=== PATIENT | female | born 1945 | race Caucasian/White ===

== ENCOUNTER 2023-04-20 08:15 | Outpatient (RCR) | payer MEDICARE, SELFPAY ==
--- NOTE | 2023-02-02 11:08 | URNOTE ---
Request received for authorization for Docetaxel (J9171), Cyclophosphamide (J9070), Palonosetron (J2469), Pegfilgrastim (J2506). Prior authorization is approved per [facility] website: Docetaxel/Cyclophosphamide and Palonosetron Auth#[id number], date range:02/08/23 to 02/09/24; and Pegfilgrastim Auth [id number] date range: 02/08/23 to 04/17/23.
[2023-02-02 14:11] LABS: Basophils Absolute Auto 0.04 K/uL (0.00-0.30); Basophils Percent Auto 0.5 % (0.0-3.0); Eosinophils Absolute Auto 0.21 K/uL (0.00-0.50); Eosinophils Percent Auto 2.7 % (0.0-7.0); Hematocrit 40.6 % (33.0-51.0); Hemoglobin* 13.1 gm/dL (12.0-16.0); Immature Granulocytes Abs Auto 0.01 K/uL (0.00-0.30); Immature Granulocytes Pct Auto 0.1 %; Lymphocytes Absolute Auto 2.74 K/uL (0.90-2.90); Lymphocytes Percent Auto 34.7 % (20-44); Mean Corpuscular HGB Conc 32 gm/dL (32-36); Mean Corpuscular Hemoglobin 31 pg (26-34); Mean Corpuscular Volume 96 fL (80-100); Monocytes Percent Auto 6.8 % (0.0-11.0); Neutrophils Absolute Auto 4.36 K/uL (1.7-7.0); Neutrophils Percent Auto 55.2 % (42.0-72.0); Platelet Count* 236 K/uL (140-440); RDW Coefficient of Variation % 12.4 % (11.5-15.5); Red Blood Count 4.22 m/uL (4.00-5.20)
[2023-02-02 14:19] LABS: Slide Review Reflex No
[2023-02-02 14:34] LABS: Albumin* 4.2 g/dL (3.3-5.0); Chloride* 105 mmol/L (96-114)
[2023-02-02 14:35] LABS: Potassium* 3.9 mmol/L (3.6-5.1); Sodium* 139 mmol/L (135-149)
[2023-02-02 14:37] LABS: Anion Gap 10 mEq/L (7-15); Aspartate Amino Transferase* 37 U/L (12-35); Bilirubin Total* 0.8 mg/dL (0.1-1.5); Carbon Dioxide* 24 mmol/L (20-32); Creatinine* 0.6 mg/dL (0.5-1.5); Est. Creatinine Clearance* 41.33; Estimated Glomerular Filt Rate 93 ml/min; Total Protein* 7.2 g/dL (6.0-8.3)
[2023-02-02 14:38] LABS: Alanine Aminotransferase* 22 U/L (4-35); Alkaline Phosphatase* 73 U/L (40-150); Blood Urea Nitrogen* 20 mg/dL (7-30); Calcium* 8.8 mg/dL (8.4-10.6); Glucose* 135 mg/dL (60-115)
[2023-02-08 08:40] VITALS: BP 131/72; PULSE 78; RESP 16; TEMP 36; O2SAT 95
[2023-02-08] MEDS: 0.9 % SODIUM CHLORIDE 250 ml IV (09:30)
[2023-02-08] MEDS: SODIUM CHLORIDE 0.9 % (FLUSH) 10 ML SYRINGE IVF ×2 (09:30→12:18)
[2023-02-08] MEDS: dexAMETHasone 20 MG in 0.9 % SODIUM CHLORIDE 100 ml 100 ML 420 MG IVPB (09:40)
[2023-02-08] MEDS: PALONOSETRON 0.25 MG/5 ML inj IV (09:40)
[2023-02-08] MEDS: HEPARIN 500 UNIT/5 ML SYRINGE IVF (12:17)
[2023-03-02 08:11] LABS: Basophils Absolute Auto 0.07 K/uL (0.00-0.30); Basophils Percent Auto 0.8 % (0.0-3.0); Eosinophils Absolute Auto 0.04 K/uL (0.00-0.50); Eosinophils Percent Auto 0.5 % (0.0-7.0); Hematocrit 36.9 % (33.0-51.0); Hemoglobin* 11.8 gm/dL (12.0-16.0); Immature Granulocytes Abs Auto 0.02 K/uL (0.00-0.30); Immature Granulocytes Pct Auto 0.2 %; Lymphocytes Percent Auto 19.2 % (20-44); Mean Corpuscular HGB Conc 32 gm/dL (32-36); Mean Corpuscular Hemoglobin 31 pg (26-34); Mean Corpuscular Volume 97 fL (80-100); Neutrophils Absolute Auto 6.13 K/uL (1.7-7.0); Neutrophils Percent Auto 69.3 % (42.0-72.0); Platelet Count* 348 K/uL (140-440); RDW Coefficient of Variation % 12.9 % (11.5-15.5); Red Blood Count 3.81 m/uL (4.00-5.20); White Blood Count* 8.84 K/uL (4.50-11.00)
[2023-03-02 08:19] LABS: Slide Review Reflex No
[2023-03-02 08:30] LABS: Chloride* 106 mmol/L (96-114); Sodium* 133 mmol/L (135-149)
[2023-03-02 08:31] LABS: Potassium* 4.5 mmol/L (3.6-5.1)
[2023-03-02 08:33] LABS: Alanine Aminotransferase* 19 U/L (4-35); Alkaline Phosphatase* 84 U/L (40-150); Anion Gap 1 mEq/L (7-15); Aspartate Amino Transferase* 20 U/L (12-35); Bilirubin Total* 0.7 mg/dL (0.1-1.5); Blood Urea Nitrogen* 18 mg/dL (7-30); Calcium* 9.3 mg/dL (8.4-10.6); Carbon Dioxide* 26 mmol/L (20-32); Creatinine* 0.7 mg/dL (0.5-1.5); Est. Creatinine Clearance* 43.07; Estimated Glomerular Filt Rate 90 ml/min; Glucose* 108 mg/dL (60-115); Total Protein* 6.8 g/dL (6.0-8.3)
[2023-03-02] MEDS: HEPARIN 500 UNIT/5 ML SYRINGE IVF (09:24)
[2023-03-02] MEDS: SODIUM CHLORIDE 0.9 % (FLUSH) 10 ML SYRINGE IVF (09:24)
[2023-03-02] MEDS: 0.9 % SODIUM CHLORIDE 250 ml IV (09:24)
[2023-03-02] MEDS: PALONOSETRON 0.25 MG/5 ML inj IV (09:24)
[2023-03-02] MEDS: dexAMETHasone 20 MG in 0.9 % SODIUM CHLORIDE 100 ml 100 ML 408 MG IVPB (09:24)
--- NOTE | 2023-03-02 11:38 | ONC.NURNOTE ---
Ok to treat with NA [address] Butterfield
[2023-03-24 08:33] LABS: Basophils Absolute Auto 0.03 K/uL (0.00-0.30); Basophils Percent Auto 0.5 % (0.0-3.0); Eosinophils Absolute Auto 0.05 K/uL (0.00-0.50); Eosinophils Percent Auto 0.8 % (0.0-7.0); Hematocrit 36.4 % (33.0-51.0); Hemoglobin* 11.5 gm/dL (12.0-16.0); Immature Granulocytes Abs Auto 0.01 K/uL (0.00-0.30); Immature Granulocytes Pct Auto 0.2 %; Lymphocytes Absolute Auto 1.47 K/uL (0.90-2.90); Lymphocytes Percent Auto 22.8 % (20-44); Mean Corpuscular HGB Conc 32 gm/dL (32-36); Mean Corpuscular Hemoglobin 31 pg (26-34); Mean Corpuscular Volume 97 fL (80-100); Monocytes Percent Auto 11.8 % (0.0-11.0); Neutrophils Absolute Auto 4.14 K/uL (1.7-7.0); Neutrophils Percent Auto 63.9 % (42.0-72.0); Platelet Count* 258 K/uL (140-440); RDW Coefficient of Variation % 13.4 % (11.5-15.5); Red Blood Count 3.76 m/uL (4.00-5.20); White Blood Count* 6.46 K/uL (4.50-11.00)
[2023-03-24 08:39] LABS: Slide Review Reflex No
[2023-03-24 08:55] LABS: Chloride* 106 mmol/L (96-114)
[2023-03-24 08:56] LABS: Potassium* 4.2 mmol/L (3.6-5.1); Sodium* 137 mmol/L (135-149)
[2023-03-24 08:58] LABS: Anion Gap 5 mEq/L (7-15); Aspartate Amino Transferase* 19 U/L (12-35); Bilirubin Total* 0.7 mg/dL (0.1-1.5); Blood Urea Nitrogen* 18 mg/dL (7-30); Carbon Dioxide* 26 mmol/L (20-32); Creatinine* 0.7 mg/dL (0.5-1.5); Est. Creatinine Clearance* 43.07; Estimated Glomerular Filt Rate 90 ml/min; Total Protein* 6.6 g/dL (6.0-8.3)
[2023-03-24 08:59] LABS: Alanine Aminotransferase* 22 U/L (4-35); Alkaline Phosphatase* 76 U/L (40-150); Calcium* 8.8 mg/dL (8.4-10.6); Glucose* 102 mg/dL (60-115)
[2023-03-24] MEDS: dexAMETHasone 20 MG in 0.9 % SODIUM CHLORIDE 100 ml 100 ML 408 MG IVPB (10:20)
[2023-03-24] MEDS: HEPARIN 500 UNIT/5 ML SYRINGE IVF (10:20)
[2023-03-24] MEDS: PALONOSETRON 0.25 MG/5 ML inj IV (10:20)
[2023-03-24] MEDS: 0.9 % SODIUM CHLORIDE 250 ml IV (10:21)
[2023-03-24] MEDS: SODIUM CHLORIDE 0.9 % (FLUSH) 10 ML SYRINGE IVF (10:21)
--- NOTE | 2023-04-19 06:57 | URNOTE ---
Request received for authorization for Pegfilgrastim (J2506). Pegfilgrastim approved- Auth: [id number], date range: 04/20/2023 to 04/17/2024. Confirmed during call Prior authorization is approved per Rep Erika Blake [facility]: Docetaxel/Cyclophosphamide and Palonosetron Auth#[id number], date range:02/08/23 to 02/09/24.
[2023-04-20 08:41] LABS: Basophils Absolute Auto 0.06 K/uL (0.00-0.30); Basophils Percent Auto 0.9 % (0.0-3.0); Eosinophils Absolute Auto 0.23 K/uL (0.00-0.50); Eosinophils Percent Auto 3.4 % (0.0-7.0); Hematocrit 35.9 % (33.0-51.0); Hemoglobin* 11.2 gm/dL (12.0-16.0); Immature Granulocytes Abs Auto 0.01 K/uL (0.00-0.30); Immature Granulocytes Pct Auto 0.1 %; Lymphocytes Percent Auto 17.2 % (20-44); Mean Corpuscular HGB Conc 31 gm/dL (32-36); Mean Corpuscular Hemoglobin 31 pg (26-34); Mean Corpuscular Volume 98 fL (80-100); Monocytes Percent Auto 13.8 % (0.0-11.0); Neutrophils Absolute Auto 4.36 K/uL (1.7-7.0); Neutrophils Percent Auto 64.6 % (42.0-72.0); Platelet Count* 246 K/uL (140-440); RDW Coefficient of Variation % 14.2 % (11.5-15.5); Red Blood Count 3.67 m/uL (4.00-5.20); White Blood Count* 6.75 K/uL (4.50-11.00)
[2023-04-20 08:48] LABS: Slide Review Reflex No
[2023-04-20 08:59] LABS: Albumin* 3.9 g/dL (3.3-5.0); Chloride* 105 mmol/L (96-114)
[2023-04-20 09:00] LABS: Potassium* 4.1 mmol/L (3.6-5.1); Sodium* 138 mmol/L (135-149)
[2023-04-20 09:02] LABS: Alkaline Phosphatase* 83 U/L (40-150); Anion Gap 7 mEq/L (7-15); Aspartate Amino Transferase* 20 U/L (12-35); Bilirubin Total* 0.8 mg/dL (0.1-1.5); Carbon Dioxide* 26 mmol/L (20-32); Creatinine* 0.7 mg/dL (0.5-1.5); Est. Creatinine Clearance* 43.07; Estimated Glomerular Filt Rate 90 ml/min; Total Protein* 6.5 g/dL (6.0-8.3)
[2023-04-20 09:03] LABS: Alanine Aminotransferase* 19 U/L (4-35); Blood Urea Nitrogen* 19 mg/dL (7-30); Calcium* 8.7 mg/dL (8.4-10.6); Glucose* 94 mg/dL (60-115)
[2023-04-20] MEDS: PALONOSETRON 0.25 MG/5 ML inj IV (09:32)
[2023-04-20] MEDS: 0.9 % SODIUM CHLORIDE 250 ml IV (09:32)
[2023-04-20] MEDS: SODIUM CHLORIDE 0.9 % (FLUSH) 10 ML SYRINGE IVF ×2 (09:32→11:57)
[2023-04-20] MEDS: dexAMETHasone 20 MG in 0.9 % SODIUM CHLORIDE 100 ml 100 ML 408 MG IVPB (09:48)
[2023-04-20] MEDS: HEPARIN 500 UNIT/5 ML SYRINGE IVF (11:57)
--- NOTE | 2023-06-24 13:28 | ONC.NURNOTE ---
Received call from pt updating us that she followed up with her primary oncologist in [place] and is choosing to follow with that team solely going forward. She is also now enrolled in 3 research studies. Gave pt our well wishes and gratitude for the role in her cancer treatment we played these last months. Reinforced that should her situation change, we are happy to resume care with her. She verbalizes gratitude and understanding.
== END 2023-07-30 23:59 | disposition home or self-care (01) ==
LOC: CCIC 08:15
PROVIDERS: Clinical Nurse Specialist; Visit Provider Internal Medicine Hematology & Oncology
DX: Z51.11 Encounter for antineoplastic chemotherapy (principal); C50.912 Malignant neoplasm of unspecified site of left female breast; Z17.0 Estrogen receptor positive status [ER+]; M81.0 Age-related osteoporosis without current pathological fracture; R19.7 Diarrhea, unspecified; Z90.13 Acquired absence of bilateral breasts and nipples; R04.0 Epistaxis; L29.9 Pruritus, unspecified
CPT/HCPCS: 36415; 36591; 80053; 85025; 96376; 96377; 96413; 96415; 96417; 99202; 99205; 99212; 99214; 99215; G0463; J2506; J9070; J1100; J1642; J2469; J7050; J9171

== ENCOUNTER 2024-06-28 13:30 | Outpatient (RCR) | payer MEDICARE, SELFPAY ==
--- NOTE | 2024-01-10 14:23 | ONC.NURNOTE ---
Patient called to see if she can get port flushes done here locally. Patient informed that we will need an order from her [facility] oncologist and we would gladly help her with this. Fax number provided.
[2024-03-23] MEDS: HEPARIN 500 UNIT/5 ML SYRINGE IVF (10:55)
[2024-03-23] MEDS: SODIUM CHLORIDE 0.9 % (FLUSH) 10 ML SYRINGE IVF (10:55)
--- NOTE | 2024-06-07 14:20 | ONC.NURNOTE ---
Patient calls to request an appointment with Dr. Butterfield. Patient states that she would like to re-establish care with our oncology team. Patient was last seen in March at [facility]. She is due for Zometa mid July. Patient discontinued Verzenio secondary to pneumonitis and declined ribociclib. She continues Letrozole daily. Patient scheduled to see Dr. Butterfield 07/25.
== END 2024-07-25 23:59 | disposition home or self-care (01) ==
LOC: CCIC 13:30
PROVIDERS: Visit Provider Physician Assistant
DX: C50.912 Malignant neoplasm of unspecified site of left female breast (principal); Z17.0 Estrogen receptor positive status [ER+]; C77.3 Secondary and unspecified malignant neoplasm of axilla and upper limb lymph nodes; M85.80 Other specified disorders of bone density and structure, unspecified site; Z79.811 Long term (current) use of aromatase inhibitors
CPT/HCPCS: 99211; 99215; G0463; J1642

== ENCOUNTER 2024-09-13 12:28 | Outpatient (CLI) | payer MEDICARE, SELFPAY ==
--- NOTE | 2024-09-13 13:00 | CRLHL7_ITS ---
For Patients: As a result of the Century Cures Act, medical imaging exams and procedure reports are released immediately into your electronic medical record. You may view this report before your referring provider. If you have questions, please contact your health care provider. Indication: MALIGNANT NEOPLASM OF BREAST- PT. HAD PNEUMONITIS Technique: CT Chest W/ 75CC ISOVUE 370 intravenous contrast Please note that all CT scans at this facility use dose modulation, iterative reconstruction, and/or weight-based dosing when appropriate to reduce radiation dose to as low as reasonably achievable. Comparison: Outside study 03/29/2024 Findings: Small bilateral pulmonary nodules are similar. Linear reticular densities in the anterior left upper lung are similar. Right apical pleural-parenchymal scarring is stable. No acute infiltrate or edema. No effusion or pneumothorax. Postop changes bilateral mastectomy and left axillary lymph node dissection. Degenerative disc disease with discogenic spurring. No vertebral body compression fracture or suspicious osseous lesion. No adenopathy. Impression: No significant interval change. Stable chronic XRT changes left upper lobe. Please note that all CT scans at this facility use dose modulation, iterative reconstruction, and/or weight-based dosing when appropriate to reduce radiation dose to as low as reasonably achievable. Dictated by Juan José Ponce MD @ 09/14/2024 11:19:27 AM (Electronically Signed)
== END 2024-09-13 12:29 | disposition home or self-care (01) ==
PROVIDERS: Visit Provider Clinical Nurse Specialist
DX: C50.919 Malignant neoplasm of unspecified site of unspecified female breast (principal); R91.8 Other nonspecific abnormal finding of lung field; J98.4 Other disorders of lung; T50.905A Adverse effect of unspecified drugs, medicaments and biological substances, initial encounter
CPT/HCPCS: 71260; Q9967

== ENCOUNTER 2024-10-02 13:00 | Outpatient (RCR) | payer MEDICARE, SELFPAY ==
--- NOTE | 2024-07-10 16:16 | PT.OPE ---
PT [place] Outpatient Eval PT [facility] Outpatient Eval Start: 07/10/24 14:23 Freq: Status: Active Protocol: Document 07/10/24 16:14 ENM (Rec: 07/10/24 16:15 ENM [id number]) E-signed By Destiny Guillen, DPT Physical Therapy Outpatient Evaluation Insurance Information Recert Due Date 10/08/24 Insurance Name Medicare B Medical Diagnosis breast cancer Treating Diagnosis weakness, deconditioning, right hip pain, impaired gait, decreased shoulder ROM, impaired posture Referring MD Imelda Barrios Subjective Subjective Patient presents to PT for complaint of deconditioning. 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 They underwent a bilateral mastectomy on 10/17/22 with ALND 5 positive lymph nodes on L none on R. Left axillary lymph node dissection revision of prior mastectomy incision was on 12/24/22 with 3/ 21 lymph nodes being positive. They underwent chemo in 2022 and radiation in May. Currently still on endocrine treatment. They had their first surgery at [facility] then transitioned to [facility] . ALND and radiation was at [place] and chemo was in [facility]. Their first year of treatment went well then they had a LE DVT in August of 2023. This affected their bodies function as it took 2 months for the clot to clear. Was having difficulty breathing. Found to have pneumonitis and had a month of steroid treatment. After that the SOB has improved but her stamina is still less. Had a flare up of her lymphedema in the left arm after radiation. For the most part she is in compression 22 /24 hours a day. They miss their old life and feel limited in what they can do. They feel like all of their joints are tight. Feels like the tightness of her chest is minimal. Does have history for right hip pain and tearing of tendon, plans to have a joint replacement and reattachment in September. Was active working at the [employer] on the [place] [employer] but has stopped since. Uses a cane for mobility but otherwise is independent. PMHx: history of breast cancer , depression, HTN, respiratory problem, osteopenia, DVT 09/08 , LUE lymphedema Pain Comments 4/10 most days Current Work Status Retired Objective Other/Pertinent Objective Strength: 5x STS 14.99s 30s STS 8 without use of arms HR increases to 90 gait/balance: seated vitals: BP 153/81 HR 73 spo2 97% 6MWT 8 laps with SEC (121' each) HR up to 97 while performing spo2 94%. Last 2 laps patient displays an increase in Trendelenburg gait Shoulder AROM in standing Flexion L 115 R 136 Abduction L 125 with HZ adduction compensation R 165 IR L L1 R T11 Posture: Patient rests with protracted shoulders and increased thoracic kyphosis Observation: Patient displays radiation skin changes along left breast with divets along chest due to tissue tightness Patient often breathes primarily through their chest with overuse of accessory muscles Assessment Assessment/Impression Patient is a 79 year old female presenting almost 2 years after their initial breast cancer diagnosis for deconditioning. They underwent a bilateral mastectomy with multiple lymph nodes removed, chemo and radiation. They are currently still on endocrine therapy. In the last year they have had medical complications including DVT and pneumonitis which has affected her overall activity levels. They also have a tendon tear of the right hip and are hopeful to have a right hip replacement in September. Due to all of this they are below baseline for their function. Upon assessment patient displays decreased functional strength and endurance with 6MWT and 30s STS. Their left shoulder active overhead movement is less than 120 deg for flexion and abduction. Heart and breathing rate is within normal limits with BP being higher than their norm. With mobility their spo2 stays stable although they display mild SOB. Notable increase in antalgic gait pattern as patient walks >5 mins. Anjali would greatly benefit from skilled PT to address impairments stated above to improve functional strength, endurance and overall activity tolerance for return to PLOF. Primary Functional Limitations ADLS, reaching with left arm, walking, standing Plan of Care Rehabilitation Potential Good Rehabilitation Potential Comments fair-good due to complex medical history Physical Therapy Goals In 10-12 visits: 1. Patient will be IND with HEP and self management of symptoms 2. Patient will improve 6MWT from 295 m to 353 m (MDC 58 m) with minimal SOB to demonstrate improvements in activity tolerance 3. Patient will improve 30s STS from 8 to 10 to demonstrate improvements in LE functional strength 4. Patient will participate in a gym routine at least 3 days a week without increase in hip pain after to improve overall cardiovascular fitness Coordination/Communication With Referral Source Treatment Plan/Direct Interventions Gait Training,Heat,Ice/Cold/ Vasopneumatic,Joint Mobilization,Manual Therapy, Neuromuscular Re-ed,Orthotics/ Braces,Self-Care/Home Management,Therapeutic Activities,Therapeutic Exercises Frequency/Duration 1-2x a week for 4 weeks, 1x a week for 6-8 visits Patient Will Be Discharged From Therapy Completion of LTG(s), Independent w/HEP Evaluation Billing Untimed Code Treatment Minutes 45 Complexity Moderate Certification Information Initial Certification Date 07/10/24 Ending Certification Date 10/08/24 Provider Signature Required Yes Provider Signature Shows Agreement With POC & Medical Necessity Physician NPI Number Write NPI# Here Physician Comment/Change : Physician Signature & Date Requested Please Sign/Date Here
[2024-07-12 08:23] VITALS: BMI 30.8
[2024-07-12 12:47] VITALS: BMI 30.8
--- NOTE | 2024-07-12 12:51 | OT.OPLE2 ---
OT Outpatient Lymphedema Eval* OT Outpatient Lymphedema Eval* Start: 07/12/24 08:22 Freq: Status: Active Protocol: Document 07/12/24 08:23 SERAFIN (Rec: 07/12/24 11:57 SHRAVANRome [id number]) E-signed By Breann Milton OTR/L, CLT OT Outpatient Evaluation Details Type Type Eval Complexity Medium Insurance Information Insurance Information Insurance Information Medicare B Height and Weight Height Height 165.4 cm Weight Weight 84.2 kg BMI Body Mass Index (kg/m?) 30.8 BMI Classification Obese Obesity Class I OT OP Lymphedema Evaluation Current Condition/Medical Diagnosis Referring Provider Imelda Barrios PA-C Medical Diagnoses C50.919 - Malignant neoplasm of unspecified site of unspecified female breast, J98.4 - Other disorders of lung R91.8 - Other nonspecific abnormal finding of lung field Left-sided invasive lobular carcinoma pathologic T3 N2a ER positive CT positive HER2 negative, status post bilateral mastectomy on 2022 Treatment Diagnosis I89.8 Other specified noninfective disorders of the lymphatic vessels and lymph nodes I89.9 Noninfective disorder of lymphatic vessels and lymph nodes, unspecified M25.612; Stiffness of left shoulder Date Of Onset status post bilateral mastectomy on 11/05/2022 Other Precautions FALL RISK; Low Vision-wears eye glasses Planning on having a hip surgery on the R in September 2024* * This will be anterior approach, MARIA D with tendon repair Medical History Medical History Comments Pulmonary nodules (Acute) R91. 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 Constipation (Acute) K59.00 Osteopenia (Acute) M85.80 Lobular carcinoma in situ ( Acute) D05.00 Hypertension (Acute) I10 GERD (gastroesophageal reflux disease) (Acute) K21.9 Diarrhea (Acute) R19.7 Breast cancer (Acute) C50.919 Surgical History Surgical History bilateral mastectomy on 2022 Medications Medications acetaminophen (Tylenol Extra Strength) 1,000 mg PO Q6H PRN [Alpha base 2 caps PO QAM] amlodipine 5 mg PO DAILY apixaban (Eliquis) 2.5 mg PO BID artificial tears(hypromellose) 0.3% 1 drp ophthalmic (eye) QID PRN atenolol 25 mg PO DAILY atorvastatin 40 mg PO DAILY gnegrenlzn-dfxqdnzlfx-sqb-cod [id number] mg 1 - 2 caps PO Q4H PRN calcium carbonate 700 mg PO QDAY cetirizine (Zyrtec) 5 mg PO QDAY PRN cholecalciferol (vitamin D3) 50 mcg PO QDAY coenzyme Q10 (CoQ-10) 200 mg PO QDAY cyclobenzaprine 10 mg PO 3XD PRN faricimab-svoa (Vabysmo) 6 mg intravitreal Q6W ferrous sulfate 325 mg PO QDAY fluticasone propionate 50 mcg/ actuation (Allergy Relief ( fluticasone)) 2 sprays intranasal QDAY PRN hydrocortisone 1% (Anti-Itch ( hydrocortisone)) 1 applic topical BID-TID PRN ketotifen fumarate 0.025%(0. 035%) (Zaditor) 1 drp ophthalmic (eye) BID PRN Lacto no.43-Xljsbn-YOI-larch 25B cell-25B cell-50 mg 1 cap PO .hs letrozole 2.5 mg PO DAILY lisinopril 20 mg PO BID loperamide (Imodium A-D) 2 mg PO Q6H PRN lorazepam 0.5 - 1 mg PO Q4H PRN magnesium glycinate (Mag Glycinate) 400 mg PO QHS melatonin 5 mg PO QHS PRN meloxicam 15 mg PO DAILY PRN omeprazole 20 mg PO DAILY ondansetron 4 mg PO Q8H PRN prochlorperazine maleate ( Compazine) 5 mg PO BID PRN sennosides-docusate sodium 8.6 -50 mg (Senna Plus) 2 tab-caps PO BID PRN sertraline 50 mg PO DAILY vit C-E-zinc oj-chat-izw-zeax 250 mg-200 unit -12.5 mg-1 mg (ICaps AREDS2) 2 caps PO DAILY Contraindications Contraindications General Contraindications Comments Allergies hydrochlorothiazide Allergy ( Intermediate, Verified 13:33) Rash adhesive tape Adverse Reaction (Intermediate, Verified 06/28 13:33) skin breakdown lovastatin Adverse Reaction ( Verified 06/28/24 13:33) Muscle Pain Family History Family History of Lymphedema Yes Family History of Lymphedema Comments Family history is positive for breast cancer in mother's sister and mother; also positive for prostate cancer Current Work Status Current Work Status Retired 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 She were diagnosed in the summer of 2022 with L invasive lobular carcinoma and right lobular ERPR+ HER2- breast cancer and underwent a bilateral mastectomy on 10/17/22 with ALND 5 positive lymph nodes on L none on R. Left axillary lymph node dissection revision of prior mastectomy incision was on 12/24/22 with 3/ 21 lymph nodes being positive . She then underwent chemo in 2022 and radiation in May. Currently still on endocrine treatment. She had their first surgery at [facility] then transitioned to [facility] . ALND and radiation was at [facility] and chemo was in [facility]. Her first year of treatment went well then had a set back with a LE DVT in August of 2023. This affected her bodies function as it took 2 months for the clot to clear. Was having difficulty breathing. Found to have pneumonitis and had a month of steroid treatment. After that the SOB has improved but her stamina is still less. Her breathing continues to improve every day but her stamina is overall still poor related general deconditioning. She has been bothered by weight gain related to her antidepressant and her letrozole. She notes that her mood has been much better since she started her antidepressant and has no mood related concerns today. Feels like she has overall been doing much better. 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 She plans on starting PT next week 2x/week to address her endurance, gait, LE strength which will be very important to prepare for her upcoming R MARIA D in September 2024. Living Situation Current Living Situation Home With Spouse Or SO Current Living Situation Comments Social history is negative for smoking, currently not drinking. Is ( Bill). Resides in [place], still drives but prefers not to drive long distances. Indep with her self cares, and her share the IADL responsibilities. Patient Difficulties Patient Difficulties Comments Observation: Patient displays radiation skin changes along left breast with divets along chest due to tissue tightness Patient often breathes primarily through their chest with overuse of accessory muscles Impairments Impairments Loss of Mobility,Difficulties With ADLs,Limb Heaviness,Poor Clothing Fit Impairments Comments Fall Risk 1a. Has the patient fallen in the last year: yes 1b. If so, how many times: 4 1c. If the patient fell within the last year, was he or she injured: yes 2. Does the patient feel unsteady when standing or walking: yes 3. Does the patient worry about falling: yes Does pt use assistive devices: Yes cane Problem List Problem List Limited Knowledge of Lymphedema Treatment/Condition /Precautions,Limited Knowledge of Skin Care & Infection Precautions,Significant Risk For Infection For Lymphedema Related Complications,Does Not Have a HEP,Presents With Increased Fall Risk Secondary To Lymphedema,Presents With Impaired Mobility/ROM Problem List Comments Patient gets winded very quickly with tasks Exercise History Does Patient Exercise Regularly Yes Pain Pain Yes Pain Comments 4/10 most days ROM/Strength ROM/Strength Comments Shoulder AROM in standing Flexion L 115 R 136 Shoulder Abduction L 125 with HZ adduction compensation R 165 IR L L1 R T11 Posture: Patient rests with protracted shoulders and increased thoracic kyphosis Previous Treatment Previous Treatment For Swelling/ Compression Garment,Exercise Lymphedema Previous Treatment/Current Home Program Patient does not have a structured program for MLD. Compression History Does Patient Currently Wear Compression Yes During Daytime Compression During Daytime Comments Juzo size Medium (III) 20-30 mmHg arm sleeve and hand gauntlet for the L UE (DME order from [facility] on 01/02/24) Dr. Barber Dudley Surgical Bra Does Patient Currently Wear Compression Yes At Night Compression At Night Comments Tribute Wrap -Large Regular length Circumferential Measurements Upper Extremity Right Upper Extremity Base of Third Finger (in cm) 6 MCP (in cm) 19.7 Palm (in cm) 19.5 Smallest Wrist Measurement (in cm) 17.1 10 cm Above Smallest Wrist Measurement 23 20 cm Above Smallest Wrist Measurement 27 30 cm Above Smallest Wrist Measurement 35 40 cm Above Smallest Wrist Measurement 37 Total Girth in cm 184.3 Left Upper Extremity Base of Third Finger (in cm) 6 MCP (in cm) 19.5 Palm (in cm) 20.5 Smallest Wrist Measurement (in cm) 16.2 10 cm Above Smallest Wrist Measurement 21.6 20 cm Above Smallest Wrist Measurement 26.4 30 cm Above Smallest Wrist Measurement 34.5 40 cm Above Smallest Wrist Measurement 37 Total Girth in cm 181.7 Assessment Assessment 79 year old female patient [facility] (was working out of [facility]). She were diagnosed in the summer of 2022 with L invasive lobular carcinoma and right lobular ERPR+ HER2- breast cancer and underwent a bilateral mastectomy on 10/17/22 with ALND 5 positive lymph nodes on L none on R. Left axillary lymph node dissection revision of prior mastectomy incision was on 12/24/22 with 3/ 21 lymph nodes being positive. She then underwent chemo in 2022 and radiation in May. Currently still on endocrine treatment. She is using her lymphedema sleeves (daytime garments), & night time compression devices as prescribed. She was seen by the Cancer Rehab PT (Destiny) at [place] and will be seen by her 2x/week to address stamina, gait, balance and LE strengthening. Pt will benefit from skilled OT intervention for pt education, monitoring / surveillance in order to provide early detection / intervention to assure best positive outcomes with fewer lymphedema related complications if the need arises. Pt demonstrates good interest and motivation to be an active participant in her care. Pt asked multiple pertinent questions and received satisfactory answers. Pt was given contact info and encouraged to reach out if more questions Patient Goals Short Term Goals (# of Weeks) 8 Short Term Goals 1. Pt will demonstrate a general understanding of the lymphatic system, s/s of lymphedema, treatment of lymphedema, implications of untreated lymphedema, s/s of infection and the correlation of infection related to lymphedema. 3 months Correction Goals (# of Weeks) 12 Talent Manager Goals 2. Pt will be compliant with quarterly assessments for lymphedema surveillance in order to obtain early intervention with best outcomes if needed. 12 months Treatment Plan Treatment Plan Evaluation,Edema Control,Joint Mobilization,Manual Therapy, Therapeutic Exercise, Therapeutic Activities,Self- Care/Home Management,Education Other Treatment Plan Breast Ca surveillance program ; plan for PRN visits with quarterly visits to monitor for complications Expected Frequency As Needed Expected Duration as needed Certification Certification Statement I Certify That: Therapy Services Provided, Therapy Plan Established, Therapy Plan Reviewed Certification Information Clinic ID # [id number] Initial Certification Date 07/12/24 Recertification Due Date 10/10/24 Provider Signature Required Yes Provider Signature Shows Agreement With POC & Medical Necessity Physician NPI Number Write NPI# Here Physician Comment/Change Comment or Changes Physician Signature & Date Requested Please Sign/Date Here
[2024-07-25 10:31] VITALS: BMI 30.8
== END 2025-01-30 23:59 | disposition home or self-care (01) ==
PROVIDERS: Visit Provider Physician Assistant
DX: C50.919 Malignant neoplasm of unspecified site of unspecified female breast (principal); J98.4 Other disorders of lung; R91.8 Other nonspecific abnormal finding of lung field; I89.9 Noninfective disorder of lymphatic vessels and lymph nodes, unspecified; M25.612 Stiffness of left shoulder, not elsewhere classified; Z51.89 Encounter for other specified aftercare
CPT/HCPCS: 97110; 97112; 97116; 97140; 97162; 97166; 97530; 97535; X5282

== ENCOUNTER 2025-01-23 14:30 | Outpatient (RCR) | payer MEDICARE, SELFPAY ==
--- NOTE | 2024-07-31 12:09 | URNOTE ---
Prior auth is not required per [facility] website for Zoledronic Acid (J3489). REf #[id number]
[2024-08-16 12:56] VITALS: BP 129/71; PULSE 67; RESP 20; TEMP 36.2; O2SAT 97
[2024-08-16 13:41] LABS: Calcium* 9.1 mg/dL (8.4-10.6); Creatinine* 0.7 mg/dL (0.5-1.5); Estimated Glomerular Filt Rate 88 ml/min
[2024-08-16] MEDS: ZOLEDRONIC ACID 4 MG in 0.9 % SODIUM CHLORIDE 100 ml 100 ML 420 MG IVPB (14:30)
== END 2025-02-12 23:59 | disposition home or self-care (01) ==
LOC: CCIC 14:30
PROVIDERS: Clinical Nurse Specialist; Visit Provider Internal Medicine Hematology & Oncology
DX: C50.912 Malignant neoplasm of unspecified site of left female breast (principal); Z17.0 Estrogen receptor positive status [ER+]; Z86.711 Personal history of pulmonary embolism; Z79.811 Long term (current) use of aromatase inhibitors; M85.80 Other specified disorders of bone density and structure, unspecified site; Z79.83 Long term (current) use of bisphosphonates; Z90.13 Acquired absence of bilateral breasts and nipples
CPT/HCPCS: 36415; 82310; 82565; 96365; 99214; G0463; J3489

== ENCOUNTER 2025-03-21 14:12 | Outpatient (CLI) | payer MEDICARE, SELFPAY ==
--- NOTE | 2025-03-21 14:30 | CRLHL7_ITS ---
For Patients: As a result of the Century Cures Act, medical imaging exams and procedure reports are released immediately into your electronic medical record. You may view this report before your referring provider. If you have questions, please contact your health care provider. XR DXA BONE MINERAL DENSITY (BMD) Current height (in): 64.5. Weight (lb): 193.00. Menopause age: 53. Ethnicity: White. Reason for exam: Osteopenia. History of breast cancer. 1. Have you had a previous hip or vertebral fracture? No. 2. Have you had any fractures during your adult life which did not result from significant trauma (e.g., auto accident)? No. 3. Did either of your parents have a hip fracture? No. 4. Do you smoke? No. 5. Have you ever taken Glucocorticoids? Yes. 6. Do you have rheumatoid arthritis? No. 7. Do you have secondary osteoporosis? No. 8. Do you drink 3 or more alcoholic drinks per day? No. 9. Are you being treated for osteoporosis? No. 10. Have you ever taken any of the following medications: Actonel, Evista, Fosamax, Miacalcin, Reclast, Boniva, Forteo, HRT (i.e. estrogen/hormone therapy), Protelos, Prolia, Vitamin D, Calcium, other ??? please specify. ANSWER: Yes; vitamin D, calcium, HRT. 11. Do you have any of the following medical conditions: Anorexia or bulimia, asthma or emphysema, end stage renal disease, hyperparathyroidism, any seizure disorders, cancer, inflammatory bowel diseases, hysterectomy, other ??? please specify. ANSWER: Yes; cancer. 12. What was your maximum height (inches)? Not provided. 13. Do you perform weight bearing exercise regularly? Not provided. 14. Do you regularly consume dairy products? Not provided. 15. Do you drink caffeinated beverages? Not provided. 16. At what age did your period start? Not provided. 17. Are you premenopausal? No. 18. How many full-term pregnancies have you had? Not provided. 19. Have you ever missed your period for more than 6 months in a row (not including or menopause)? Not provided. TECHNIQUE: Bone mineral density study was performed using the [employer] FINDINGS: The results of the study expressed as bone mineral density (BMD) are as follows: Lumbar spine L1 to L4: BMD: 1.026 g/cm2. T-score: -0.2. Z-score: 2.4 Neck Left: BMD: 0.729 g/cm2. T-score: -1.1. Z-score: 1.2 Right: BMD: 0.705 g/cm2. T-score: -1.3. Z-score: 1.0 Total Left: BMD: 0.911 g/cm2. T-score: -0.3. Z-score: 1.7 Right: BMD: 0.924 g/cm2. T-score: -0.1. Z-score: 1.9 IMPRESSION: Osteopenia. FRAX 10-year Fracture Risk Major Osteoporotic Fracture: 18 percent Hip Fracture: 4.2 percent Reported Risk Factors: [place] () Neck BMD = 0.705, BMI = 32.6 Juan José Ponce M.D. Diagnostic Radiologist [email or web address] Transcribed: 10:24 am DW/Dictated by: Juan José Ponce MD @ 03/22/2025 9:19:00 AM (Electronically Signed)
== END 2025-03-21 14:13 | disposition home or self-care (01) ==
LOC: RAD 14:14
PROVIDERS: Visit Provider Internal Medicine Hematology & Oncology
DX: M85.80 Other specified disorders of bone density and structure, unspecified site (principal); M85.89 Other specified disorders of bone density and structure, multiple sites; C50.919 Malignant neoplasm of unspecified site of unspecified female breast; R91.8 Other nonspecific abnormal finding of lung field
CPT/HCPCS: 77080